=== PATIENT | male | born 2000 | race Caucasian/White ===

== ENCOUNTER → 2021-03-10 16:23 | Outpatient (BNVA) | payer SELFPAY | PROVIDERS: Family Provider General Practice; Visit Provider Family Medicine | DX: R00.2 Palpitations (principal); R07.9 Chest pain, unspecified; R01.1 Cardiac murmur, unspecified; Z76.89 Persons encountering health services in other specified circumstances | CPT/HCPCS: 80053; 84443; 85025 ==

== ENCOUNTER → 2022-03-14 12:45 | Outpatient (BNVA) | payer BC, SELFPAY | PROVIDERS: Family Provider General Practice; PCP Family Medicine; Visit Provider Nurse Practitioner Family | DX: J02.9 Acute pharyngitis, unspecified (principal) | CPT/HCPCS: 87071; 87400; 87880 ==

== ENCOUNTER → 2022-03-30 15:29 | Outpatient (BNVA) | payer BC, SELFPAY | PROVIDERS: Family Provider General Practice; PCP Family Medicine; Visit Provider Nurse Practitioner Family | DX: J11.1 Influenza due to unidentified influenza virus with other respiratory manifestations (principal) | CPT/HCPCS: 87400 ==

== ENCOUNTER 2022-07-28 08:00 | Outpatient (CLI) | payer BC, SELFPAY | END 2022-07-28 08:01 | disposition home or self-care (01) | LOC: SLEEP 07-29 16:25 | PROVIDERS: Family Provider General Practice; PCP Family Medicine; Visit Provider Otolaryngology | DX: R06.83 Snoring (principal); G47.33 Obstructive sleep apnea (adult) (pediatric) | CPT/HCPCS: G0399 ==

== ENCOUNTER 2022-10-14 10:30 | Outpatient (CLI) | payer BC, SELFPAY ==
--- NOTE | 2022-10-14 10:43 | XR_ITS ---
WS: [id number] Exam: XR chest 2V* [id number] Date/Time of Exam: 10/14/2022 10:59 AM Reason For Exam: Chest pain, palpitations Findings: The lungs are clear and fully expanded. Costophrenic angles are sharp. No infiltrates. Bronchovascula r relief appears normal. Cardiac silhouette is unremarkable. Bony elements are intact. XR/XR chest 2V* [id number] IMPRESSION: Unremarkable chest radiograph.
== END 2022-10-14 10:31 | disposition home or self-care (01) ==
PROVIDERS: Family Provider General Practice; PCP Family Medicine; Visit Provider Family Medicine
DX: R00.2 Palpitations (principal); R01.1 Cardiac murmur, unspecified; R07.9 Chest pain, unspecified
CPT/HCPCS: 71046; 80053; 80061; 82306; 83036; 83735; 83880; 84443; 84484; 85025

== ENCOUNTER 2022-10-18 23:44 | Emergency (ER) | payer BC, SELFPAY ==
--- NOTE | 2022-10-18 23:45 | XRR_ITS ---
PROCEDURE INFORMATION: Exam: XR Chest Exam date and time: 10/19/2022 12:34 AM Age: 22 years old Clinical indication: Chest pressure; Patient HX: C/O chest pain; Additional info: Cp TECHNIQUE: Imaging protocol: Radiologic exam of the chest. Views: 1 view. COMPARISON: CR XR chest 2V* [id number] 10/14/2022 11:00 AM FINDINGS: Lungs: Unremarkable. No consolidation. Pleural spaces: Unremarkable. No pleural effusion. No pneumothorax. Heart/Mediastinum: Unremarkable. No cardiomegaly. Bones/joints: Unremarkable. XR/XR chest 1V portable [id number] IMPRESSION: No acute findings.
--- NOTE | 2022-10-18 23:52 | ECG_ITS ---
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 Measurements Intervals [place] Rate: 77 P: 38 MD: 158 QRS: 34 QRSD: 86 T: 35 QT: 343 QTc: 388 Interpretive Statements SINUS RHYTHM WITH SINUS ARRHYTHMIA No previous ECG available for comparison Electronically Signed On 10-19-2022 21:12:36 CDT by Maggy Berry M.D. [id number]
[2022-10-18 23:54] VITALS: BP 153/92; PULSE 80; RESP 16; TEMP 36.9; O2SAT 98; BMI 33.3
[2022-10-19 00:38] LABS: Basophils % 0.4 %; Eosinophils # 0.2 10^3/uL (0.0-0.8); Eosinophils % 2.5 %; Hematocrit 48.9 % (42.0-52.0); Hemoglobin 15.9 g/dL (11.7-16.6); Lymphocytes # 2.7 10^3/uL (0.8-4.8); Lymphocytes % 27.9 %; Mean Corpuscular HGB Conc 32.5 g/dL (30.0-36.0); Mean Corpuscular Hemoglobin 26.8 pg (28.0-34.0); Mean Corpuscular Volume 82.5 fl (80-94); Mean Platelet Volume 9.1 fL (7.4-10.4); Monocytes # 0.9 10^3/uL (0.2-0.9); Monocytes % 9.4 %; Neutrophils # 5.83 10^3/uL (1.8-7.7); Neutrophils % 59.5 %; Nucleated Red Blood Cells % 0 %; Platelet Count 255 10^3/cmm (130-400); Red Blood Count 5.93 10^6/uL (4.1-5.3); Red Cell Distribution Width 12.9 % (12.1-15.1); White Blood Count 9.8 10^3/uL (4.0-10.0)
[2022-10-19 01:15] LABS: Troponin(5th) Baseline 7 ng/L (0-15)
[2022-10-19 01:17] LABS: Alanine Aminotransferase 37 U/L (0-41); Albumin Level 4.7 g/dL (3.5-5.2); Alkaline Phosphatase 83 U/L (40-130); Anion Gap 13.8 (5-19); Aspartate Amino Transferase 21 U/L (0-40); Blood Urea Nitrogen 13 mg/dL (6-20); Calcium 9.4 mg/dL (8.5-10.5); Carbon Dioxide 26 mmol/L (22-29); Chloride 101 mmol/L (98-107); Globulin 2.5 g/dL (1.3-4.6); Glomerular Filtration Rate 120.9 mL/min (90-130); Glucose 119 mg/dL (65-115); Osmolality Calculated 285 mOsm/kg (285-295); Potassium 3.8 mmol/L (3.5-5.1); Sodium 137 mmol/L (136-145); Total Bilirubin 0.4 mg/dL (0.15-1.2); Total Protein 7.2 g/dL (6.6-8.7)
--- NOTE | 2022-10-19 01:24 | ED_ITS ---
HPI - Arrhythmia/Palpitations General: Chief Complaint: Arrhythmia/Palpitations Stated Complaint: cp Time Seen by Provider: 10/18/22 23:57 Source: patient Mode of arrival: ambulatory Limitations: no limitations History of Present Illness: 22-year-old male states he been having chest pain over the last week he had seen his PCP for this earlier this week. He states the pains persist a sharp pain in his left chest denies any shortness of breath denies any vomiting denies any diarrhea. Associated symptoms: Deny nausea or vomiting Review of Systems Const: Denies: fever(s), chills, body aches or change in appetite Eyes: Denies: blurry vision or eye discomfort ENMT: Denies: throat pain or dental pain Card: Reports: chest pain Resp: Denies: dyspnea GI: Denies: abdominal pain, nausea, vomiting or diarrhea : Denies: dysuria Musc: Denies: neck pain or back pain Skin/Breast: Denies: rash Neuro: Denies: headache(s) Psych: Denies: depression Jovany/Lymph: Denies: easy bruising All/Imm: Denies: urticaria PFSH ED PFSH: Medical History Allergic rhinitis due to allergen Social History Smoking and tobacco status: never smoked Alcohol intake: current Alcohol intake frequency: holidays/special occasions only Substance/Drug Use: never Physical Exam Const: COMMON NORMALS: no acute distress, patient oriented x3 and healthy appearing HENMT: COMMON NORMALS: normocephalic and atraumatic HEAD & SCALP: n ormocephalic and atraumatic Neck/C-Spine: COMMON NORMALS: full ROM and supple Chest: COMMONS NORMALS: normal inspection of the chest and normal palpation of entire chest wall Resp: COMMON NORMALS: normal respiratory effort, No retractions, No use of accessory muscles and clear to auscultation bilaterally AUSCULTATION: clear to auscultation bilaterally Cardio: COMMON NORMALS: regular rate, regular rhythm and No murmurs present (Cardio) RATE: regular rate RHYTHM: regular rhythm GI: COMMON NORMALS: Normal to inspection, nondistended, normoactive bowel sounds present, Soft to palpation, non-tender and no masses PALPATION: Yes Soft to palpation Extremity: COMMON NORMALS: normal to inspection and full ROM Neuro: COMMON NORMALS: patient oriented x3, moves all extremities and no focal motor deficits Psych: COMMON NORMALS: mental status grossly normal, Normal thought process present and cooperative THOUGHT PROCESS: Normal thought process present Skin: COMMON NORMALS: no rashes or lesions noted and no wounds GENERAL SKIN EXAM: no rashes or lesions noted Course Vital Signs: Vital signs: Vital Signs Temperature 98.4 F 10/18/22 23:54 Pulse Rate 80 10/18/22 23:54 Respiratory Rate 16 10/18/22 23:54 Blood Pressure 153/92 10/18/22 23:54 Pulse Oximetry 98 10/18/22 23:54 Oxygen Delivery Me thod Room Air 10/18/22 23:54 MDM - Arrhythmia/Palpitations Medical Decision Making Patient presents for chest pains atypical in nature patient's blood work including troponin EKG and x-ray are all normal he is stable for discharge he is to follow-up with PCP and return if worsening Medical Records I reviewed the patient's medical records. Lab Data I reviewed the patient's lab results. 10/18/22 00:30 10/18/22 00:30 Radiology Impressions Chest X-Ray 10/18/22 23:45 IMPRESSION: No acute findings. Laboratory Results WBC 9.8 10^3/uL (4.0-10.0) 10/18/22 00:30 RBC 5.93 10^6/uL (4.1-5.3) H 10/18/22 00:30 Hgb 15.9 g/dL (11.7-16.6) 10/18/22 00:30 Hct 48.9 % (42.0-52.0) 10/18/22 00:30 MCV 82.5 fl (80-94) 10/18/22 00:30 MCH 26.8 pg (28.0-34.0) L 10/18/22 00:30 MCHC 32.5 g/dL (30.0-36.0) 10/18/22 00:30 RDW 12.9 % (12.1-15.1) 10/18/22 00:30 Plt Count 255 10^3/cmm (130-400) 10/18/22 00:30 MPV 9.1 fL (7.4-10.4) 10/18/22 00:30 Neut % (Auto) 59.5 % 10/18/22 00:30 Lymph % (Auto) 27.9 % 10/18/22 00:30 [place] % (Auto) 9.4 % 10/18/22 00:30 Eos % (Auto) 2.5 % 10/18/22 00:30 Baso % (Auto) 0.4 % 10/18/22 00:30 Neut # (Auto) 5.83 10^3/uL (1.8-7.7) 10/18/22 00:30 Lymph # (Auto) 2.7 10^3/uL (0.8-4.8) 10/18/22 00:30 [place] # (Auto) 0.9 10^3/uL (0.2-0.9) 10/18/22 00:30 Eos # (Auto) 0.2 10^3/uL (0.0-0.8) 10/18/22 00:30 Baso # (Auto) 0.0 10^3/uL (0.0-0.1) 10/18/22 00:30 Nucleated RBC % (auto) 0 % 10/18/22 00:30 Nucleated RBCs # 0.0 /100WBC 10/18/22 00:30 PT 13.50 SECONDS (12.1-14.9) 10/18/22 00:30 INR 1.00 (0.8-1.2) 10/18/22 00:30 Sodium 137 mmol/L (136-145) 10/18/22 00:30 Potassium 3.8 mmol/L (3.5-5.1) 10/18/22 00:30 Chloride 101 mmol/L (98-107) 10/18/22 00:30 Carbon Dioxide 26 mmol/L (22-29) 10/18/22 00:30 Anion Gap 13.8 (5-19) 10/18/22 00:30 BUN 13 mg/dL (6-20) 10/18/22 00:30 Creatinine 0.8 mg/dL (0.7-1.2) 10/18/22 00:30 GFR Calculation 120.9 mL/min (90-130) 10/18/22 00:30 Glucose 119 mg/dL (65-115) H 10/18/22 00:30 Calculated Osmolality 285 mOsm/kg (285-295) 10/18/22 00:30 Calcium 9.4 mg/dL (8.5-10.5) 10/18/22 00:30 Total Bilirubin 0.4 mg/dL (0.15-1.2) 10/18/22 00:30 AST 21 U/L (0-40) 10/18/22 00:30 ALT 37 U/L (0-41) 10/18/22 00:30 Alkaline Phosphatase 83 U/L (40-130) 10/18/22 00:30 Troponin T Baseline 7 ng/L (0-15) 10/18/22 00:30 Total Protein 7.2 g/dL (6.6-8.7) 10/18/22 00:30 Albumin 4.7 g/dL (3.5-5.2) 10/18/22 00:30 Globulin 2.5 g/dL (1.3-4.6) 10/18/22 00:30 EKG Data EKG 1: I personally reviewed and interpreted this EKG as follows: EKG interpretation date: 10/18/22 EKG interpretation time: 23:52 Interpretation: nsr hr [address] or t wave abnormalities qrs 86 qtc 374 Other EKG comments: Chest X-Ray 10/18/22 23:45 IMPRESSION: No acute findings. Discharge Plan Discharge Patient Disposition: Home Clinical Impression: Chest pain Condition: Stable Prescriptions: No Action fluticasone propionate 50 mcg/actuation spray,suspension 2 spray intranasal BID PRN (Reason: nasal congestion) Qty: 16 1RF Rx Instructions: administer into each nostril loratadine 10 mg tablet 10 mg PO DAILY Qty: 30 0RF diphenhydramine HCl 25 mg capsule 25 mg PO .hs PRN (Reason: allergy symptoms) Qty: 30 0RF albuterol sulfate [Ventolin HFA] 90 mcg/actuation HFA aerosol inhaler 1 - 2 puff inhalation Q6H PRN (Reason: shortness of breath or wheezing) Qty: 8.5 0RF Discharge Orders: Discharge ED (Routine); Ordered 10/19/22 Ordered By: Kentrell Shen Referrals: Alfonzo Figueroa DO [Primary Care Provider] - Discharge Diet: Advance as tolerated Discharge Activity: Resume usual activity Patient Instructions: Chest Pain (ED) Coding Level of Care Code ED Auto Design Checker for Bridget Dietz
[2022-10-19 01:40] VITALS: BP 136/76; PULSE 76; RESP 16; O2SAT 98
[2022-10-19 01:41] VITALS: BP 136/76; PULSE 76; RESP 16; TEMP 36.9; O2SAT 98
== END 2022-10-19 01:42 | disposition home or self-care (01) ==
PROVIDERS: Emergency Provider Emergency Medicine; PCP Family Medicine
DX: R07.9 Chest pain, unspecified (principal)
CPT/HCPCS: 36415; 71045; 80053; 84484; 85025; 85610; 93005; 99285

== ENCOUNTER 2022-10-21 06:13 | Outpatient (CLI) | payer BC, SELFPAY ==
--- NOTE | 2022-10-21 06:15 | USCV_ITS ---
Gavin Torres Dhruv Age: 22 Gender: M : 2000 Exam Date: 10/21/2022 06:32 Ordering Phys: Alfonzo Figueroa DO Technologist: MEGAN Exam Location: [facility] – [place] Indication: CHEST PAIN, MURMUR BP: 112 / 68 HR: 63 Rhythm: Sinus Technical Quality: Adequate MEASUREMENTS (Male / Female) Normal Values 2D ECHO LVOT Diameter 2.0 cm LV Ejection Fraction MOD 2C 76.0 % LV Ejection Fraction 2C AL 80.2 % LA Diameter 3.8 cm LA Width 4.0 cm LA Height 4.7 cm RA Width 3.7 cm RA Height 4.9 cm Aorta at Sinotubular Diameter 2.6 cm IVC Diameter 2.0 cm M-MODE Aortic Annulus Diameter 2.6 cm LA Ao Ratio MM 1.2 MV E Point Septal Separation 0.3 cm DOPPLER AV Peak Velocity 129.0 cm/s LVOT Peak Velocity 111.0 cm/s AV Area Cont Eq vti 2.7 cm squared AV Area Cont Eq pk 2.7 cm squared MV Peak Velocity 121.0 cm/s MV Area PHT 5.1 cm squared Mitral E to A Ratio 2.0 MV E' Velocity 59.0 cm/s Mitral E to MV E' Ratio 6.2 Mitral E to LV E' Lateral Ratio 5.6 Mitral E to LV E' Septal Ratio 6.8 TR Peak Velocity 171.0 cm/s TR Peak Gradient 11.7 mmHg TR Mean Velocity 145.2 cm/s TR Mean Gradient 8.5 mmHg TR Velocity Time Integral 50.8 cm TV Peak E Velocity 53.0 cm/s Right Atrial Pressure 3.0 mmHg Pulmonary Artery Systolic Pressu 14.7 mmHg PV Peak Velocity 125.0 cm/s RV Acceleration Time 0.2 s RV Ejection Time 0.3 s RV AcT/ET 0.5 FINDINGS Left Ventricle Left ventricle is normal in size. LV systolic function is normal with EF of 60-65%. No regional wall motion abnormalities are seen. Right Ventricle Normal in size and function Right Atrium Normal in size Left Atrium Normal in size Mitral Valve Structurally normal mitral valve. Trace mitral regurgitation. Aortic Valve Structurally normal aortic valve. No significant stenosis or regurgitation seen. Tricuspid Valve Mild tricuspid regurgitation. Insufficient TR jet to calculate RVSP. Pulmonic Valve Not well visualized. Trace pulmonic regurgitation. Pericardium Normal Aorta Normal in size IVC Appears to be normal CONCLUSIONS LV systolic function is normal with EF of 60 to 65%. Trace mitral regurgitation Mild tricuspid regurgitation Trace pulmonic regurgitation No comparison studies are available. Néstor Murillo MD (Electronically Signed) Final Date: 01 November 2022 12:52 S
== END 2022-10-21 06:14 | disposition home or self-care (01) ==
PROVIDERS: PCP Family Medicine; Visit Provider Family Medicine
DX: R01.1 Cardiac murmur, unspecified (principal); R00.2 Palpitations; R07.9 Chest pain, unspecified; I07.1 Rheumatic tricuspid insufficiency
CPT/HCPCS: 93306

== ENCOUNTER → 2023-07-17 11:01 | Outpatient (BNVA) | payer BC, SELFPAY | PROVIDERS: PCP Family Medicine; Visit Provider Nurse Practitioner | DX: M25.511 Pain in right shoulder (principal) | CPT/HCPCS: 73030 ==

== ENCOUNTER → 2023-11-05 08:23 | Outpatient (BNVA) | payer SELFPAY | PROVIDERS: PCP Family Medicine; Visit Provider Nurse Practitioner | DX: U07.1 COVID-19 (principal) | CPT/HCPCS: 87426 ==

== ENCOUNTER 2024-03-16 08:30 | Outpatient (CLI) | payer BC, SELFPAY ==
--- NOTE | 2024-03-16 08:46 | FL_ITS ---
WS: [id number] Barium swallow and esophagram, 03/16/2024 Clinical Data: DYSPHAGIA,OROPHARYNGEAL PHASE Comparison: None. Fluoroscopy time: 1min [id number] # of spot films: 8 Findings: The patient swallowed the thick and thin barium, and it flowed through the hypopharynx without hesita tion. No stricture, mass, polyp or erosion was seen. The barium entered the esophagus and there was normal motility throughout. No hiatal hernia, reflux, stricture, polyp, mass, erosion or ulcer was noted. The barium passed normally into the stomach. FL/FL barium swallow [id number] Impression: Normal esophagram.
== END 2024-03-16 08:39 | disposition home or self-care (01) ==
PROVIDERS: PCP Family Medicine; Visit Provider Otolaryngology
DX: R13.12 Dysphagia, oropharyngeal phase (principal); J35.1 Hypertrophy of tonsils
CPT/HCPCS: 74220

== ENCOUNTER → 2024-07-18 15:45 | Outpatient (BNVA) | payer BC, SELFPAY | PROVIDERS: Visit Provider Internal Medicine Cardiovascular Disease | DX: R07.9 Chest pain, unspecified (principal); F41.1 Generalized anxiety disorder; F41.0 Panic disorder [episodic paroxysmal anxiety] | CPT/HCPCS: 93005 ==

== ENCOUNTER 2024-08-17 06:12 | Outpatient (CLI) | payer BC, SELFPAY ==
--- NOTE | 2024-08-17 06:15 | USCV_ITS ---
Dhruv Alonso Jr Age: 24 Gender: M : 2000 Exam Date: 08/17/2024 06:27 Ordering Phys: Xiang Lozoya MD ([email or web address]) Technologist: Exam Location: [facility] [place] Indication: murmur BP: 120 / 75 HR: 56 Rhythm: Sinus Technical Quality: Adequate MEASUREMENTS (Male / Female) Normal Values 2D ECHO LV Diastolic Diameter PLAX 4.1 cm 4.2 - 5.9 / 3.9 - 5.3 cm IVS Diastolic Thickness 1.6 cm 0.6 - 1.0 / 0.6 - 0.9 cm IVS Systolic Thickness 2.4 cm LVPW Diastolic Thickness 1.4 cm 0.6 - 1.0 / 0.6 - 0.9 cm LVPW Systolic Thickness 1.7 cm LVOT Diameter 2.4 cm LV Ejection Fraction 2D Teich 55.2 % LV Ejection Fraction MOD 4C 53.1 % LA Diameter 4.2 cm RA Systolic Volume 4C AL 53.8 ml RA Systolic Volume 4C MOD 49.6 ml LA Sys Volume AL 50.7 cm cubed LA Sys Volume Index AL 21.7 cm cubed/m squared Aorta at Sinotubular Diameter 2.5 cm M-MODE LA Ao Ratio MM 1.6 AV Cusp Separation MM 2.6 cm DOPPLER AV Peak Velocity 118.0 cm/s LVOT Peak Velocity 88.0 cm/s AV Area Cont Eq vti 4.7 cm squared AV Area Cont Eq pk 3.5 cm squared MV Peak Velocity 114.0 cm/s MV Area PHT 3.9 cm squared Mitral E to A Ratio 1.9 TV Peak Velocity 284.5 cm/s TR Peak Velocity 301.0 cm/s TR Peak Gradient 36.2 mmHg TV Peak E Velocity 140.0 cm/s PV Peak Velocity 111.0 cm/s FINDINGS Left Ventricle Normal LV size ejection fraction of 56%.no regional wall motion abnormalities. Right Ventricle The right ventricle is normal in size and function. Right Atrium The right atrium is normal in size. Left Atrium The left atrium is normal in size. Mitral Valve Trace mitral valve regurgitation. Aortic Valve No gross abnormalities noted Tricuspid Valve Trace tricuspid valve regurgitation. Pulmonic Valve No gross abnormalities noted Pericardium Normal pericardium without effusion. Aorta Normal ascending aorta dimension. IVC Normal inferior vena cava. CONCLUSIONS Normal LV size ejection fraction of 56%.no regional wall motion abnormalities. Normal cardiac chamber sizes. Trace of mitral and tricuspid regurgitation. There is no pericardial effusion. There are no intracardiac masses. Compared to the study from 10/21/2022, there may be significant change. Dr Ha Ramirez MD [facility] (Electronically Signed) Final Date: 18 Aug 2024 09:51 S
== END 2024-08-17 06:13 | disposition home or self-care (01) ==
PROVIDERS: Visit Provider Internal Medicine Cardiovascular Disease
DX: R07.9 Chest pain, unspecified (principal); R01.1 Cardiac murmur, unspecified
CPT/HCPCS: 93306